=== PATIENT | male | born 1980 | race African-American/Black ===

== ENCOUNTER 2019-10-16 12:48 | Inpatient (IN) | payer SELFPAY ==
[~2019-10-16] VITALS: Ht 190.5 cm; Wt 107.1 kg
[2019-10-16 14:10] LABS: Basophils # (auto) 0 uL; Basophils % (auto) 0.3 % (0.0-2.0); Eosinophils # (auto) 0 uL; Eosinophils % (auto) 0.1 % (0.0-7.0); Hematocrit 35.4 % (41.0-53.0); Hemoglobin 12.3 g/dL (13.5-17.5); Lymphocytes # (auto) 0.7 uL; Lymphocytes % (auto) 5.8 % (10.0-50.0); Mean Corpuscular Hemoglobin 32.4 pg (28.0-32.0); Mean Corpuscular Hgb Conc. 34.6 g/dL (32.0-36.0); Mean Corpuscular Volume 93.5 fL (80.0-100.0); Monocytes % (auto) 8.8 % (0.0-12.0); Platelet Count (auto) 281 10^3/uL (140-450); Red Blood Cells 3.79 10^6/uL (4.5-5.90); Red Cell Distribution Width 13.5 % (11.8-14.3); White Blood Cell 11.8 10^3/uL (4.4-10.8)
[2019-10-16 14:24] LABS: INR 1.3 (0.9-1.15)
[2019-10-16 14:27] LABS: Albumin 3.1 g/dL (3.4-5.0); BUN/Creatinine Ratio 10.5; Calcium 8.6 mg/dL (8.5-10.1); Potassium 3.4 mmol/L (3.5-5.1)
[2019-10-16 14:33] LABS: Bilirubin, Total 0.7 mg/dL (0.2-1.0); Total Protein 8.5 g/dL (6.4-8.2)
[2019-10-16] MEDS ORDERED: IOHEXOL 350 MG/ML 100ML IJ ONE (17:38)
[2019-10-16] MEDS ORDERED: POTASSIUM EFFERVESENT TAB 25 MEQ PO ONE (18:15)
[2019-10-16] MEDS ORDERED: ACETAMINOPHEN 500 MG TAB PO PRN (19:45)
[2019-10-16] MEDS ORDERED: NITROGLYCERIN 0.4 MG SL TAB SL PRN (19:45)
[2019-10-16] MEDS ORDERED: KETOROLAC TROMETH 30 MG/ML 1ML VIAL IV ONE (19:45)
[2019-10-16] MEDS ORDERED: MORPHINE SULF INJ 2 MG/ML SYRINGE 1ML IV PRN ×2 (19:45)
[2019-10-16 19:50] VITALS: BP 123/75
[2019-10-16] MEDS: SODIUM CHLORIDE 0.9% 1,000 ML IV SCH (20:38)
[2019-10-16] MEDS: HYDROcodone-ACET 5/325MG TAB PO PRN (20:38)
[2019-10-16 20:55] VITALS: BP 127/74
--- NOTE | 2019-10-16 20:55 | NUR ---
TELE ADMIT FROM ER RECEIVED PATIENT FROM ER VIA WHEELCHAIR. PATIENT A/O X4, AMBULATORY. NO S/S OF DISTRESS OR SOB. NO PAIN NOTED OR REPORTED AT THIS TIME. UPDATED PATIENT ON POC, VERBALIZED UNDERSTANDING. BED LOCKED IN LOW POSITION, CALL LIGHT WITHIN REACH. WILL CONTINUE TO MONITOR PATIENT Q1HR AND PRN.
[2019-10-16 22:00] VITALS: BP 127/74
[2019-10-16] MEDS: APIXABAN 5 MG TAB PO SCH (22:17)
--- NOTE | 2019-10-16 23:05 | NUR ---
RAPID INFLUENZA AND RESP CULTURE COLLECTED AND SENT TO LAB
[2019-10-17] MEDS: PIPERACILLIN-TAZOB 3.375GM 100 ML IV SCH ×3 (00:22→13:23)
[2019-10-17] MEDS: SODIUM CHLORIDE 0.9% 1,000 ML IV SCH ×2 (03:45→11:14)
[2019-10-17 05:41] VITALS: BP 107/78
[2019-10-17] MEDS: HYDROcodone-ACET 5/325MG TAB PO PRN ×2 (06:02→14:38)
[2019-10-17] MEDS ORDERED: APIX5TAB PO ×3 (06:24→14:24)
[2019-10-17] MEDS: ALBUTEROL SULF 2.5 MG/0.5ML(0.5%) NEB SOLN NEB SCH ×2 (06:32→11:53)
[2019-10-17] MEDS: IPRATROPIUM BROM 0.5 MG/2.5ML INH SOL NEB SCH ×2 (06:33→11:54)
[2019-10-17 07:00] LABS: Basophils # (auto) 0 uL; Basophils % (auto) 0.1 % (0.0-2.0); Eosinophils # (auto) 0 uL; Eosinophils % (auto) 0.3 % (0.0-7.0); Hematocrit 34.5 % (41.0-53.0); Lymphocytes % (auto) 11.2 % (10.0-50.0); Mean Corpuscular Hemoglobin 32.7 pg (28.0-32.0); Mean Corpuscular Hgb Conc. 34.7 g/dL (32.0-36.0); Monocytes # (auto) 0.9 uL; Monocytes % (auto) 10.5 % (0.0-12.0); Neutrophils % (auto) 77.9 % (37.0-80.0); Nucleated Red Blood Cells % 0.1 %; Platelet Count (auto) 270 10^3/uL (140-450); Red Blood Cells 3.67 10^6/uL (4.5-5.90); Red Cell Distribution Width 13.4 % (11.8-14.3)
[2019-10-17 07:08] LABS: BUN/Creatinine Ratio 10.7; Calcium 8.5 mg/dL (8.5-10.1); Potassium 3.5 mmol/L (3.5-5.1)
--- NOTE | 2019-10-17 07:50 | NUR ---
OPENING NOTE Assumed care of patient from NOC RNIsabela. Patient awake and alert with no S/S of distress/SOB or pain. Instructed on POC and to call for assistance PRN, verbalized understanding. Bed in lowest, locked position with side rails up x2 and call light within reach. Will continue to monitor for changes Q1hr and PRN.
[2019-10-17 09:00] VITALS: BP 146/77
[2019-10-17] MEDS ORDERED: LEVOFLOXACIN 750MG 150 ML IV SCH (10:00)
[2019-10-17] MEDS ORDERED: FAMOTIDINE 20 MG TAB PO SCH (10:00)
--- NOTE | 2019-10-17 10:10 | NUR ---
COMPLAINT Patient states "I feel like I'm being treated unfairly because I don't have insurance, I should be receiving breathing treatments that I'm not getting and no body is telling me anything that is going on". Sympathized with patient and apologized for the way he was feeling. Informed patient that RT would be paged for a breathing treatment. Patient requested to speak with "someone in charge". ditch inspector, Carlos, aware and states he will speak with patient.
[2019-10-17] MEDS: APIXABAN 5 MG TAB PO SCH (11:14)
[2019-10-17] MEDS ORDERED: LEVO750T64 PO ×2 (13:41→14:24)
--- NOTE | 2019-10-17 14:23 | NUR ---
RX Patient requesting paper prescription vs electronic, states "I want options as to where I am able to go".
[2019-10-17] MEDS ORDERED: GABA300C10 PO (14:24)
--- NOTE | 2019-10-17 16:20 | NUR ---
DISCHARGE Discharge instructions given as ordered. Encouraged to follow up with PMD as instructed. All questions and concerns addressed, patient verbalized understanding. 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 Medication reconciliation form completed and copy given to patient. IV removed with catheter intact and pressure dressing applied. Telemetry unit returned to ICU. Patient ambulated to vehicle with all personal belongings, accompanied family member. No distress noted at time of departure.
[2019-10-23] MEDS ORDERED: APIXABAN 5 MG TAB PO SCH (22:00)
== END 2019-10-17 16:20 | disposition home or self-care (01) | DRG 871 ==
LOC: ER 12:54 → TELE 12:55 → TELE-WESTW 20:55
PROVIDERS: ADMIT Nurse Practitioner Acute Care; ATTEND Hospitalist
DX: A41.9 Sepsis, unspecified organism (principal); J18.1 Lobar pneumonia, unspecified organism; I26.99 Other pulmonary embolism without acute cor pulmonale; E87.6 Hypokalemia; E66.9 Obesity, unspecified; Y95 Nosocomial condition; Z79.01 Long term (current) use of anticoagulants; Z86.711 Personal history of pulmonary embolism; Z86.718 Personal history of other venous thrombosis and embolism; Z68.30 Body mass index [BMI] 30.0-30.9, adult
CPT/HCPCS: 36415; 71045; 71275; 80048; 80053; 84484; 85025; 85379; 85610; 87070; 87205; 87804; 93970; 94640; 96365; 96375; G0378; J1885; J1956; J2543